=== PATIENT | male | born 1995 | race Caucasian/White ===

== ENCOUNTER 2017-05-15 15:39 | Emergency (ER) | payer BC ==
[2017-05-15 15:53] VITALS: BP 128/63
--- NOTE | 2017-05-15 15:54 | EDM.PDOC ---
ED HPI GENERAL MEDICAL PROBLEM - General Chief Complaint: General Stated Complaint: L knee pain Time Seen by Provider: 05/15/17 15:45 Source of Information: Reports: Patient. Denies: Old Records (No [facility] records available) History Limitations: Reports: No Limitations - History of Present Illness INITIAL COMMENTS - FREE TEXT/NARRATIVE: The patient was playing on the monkey bars at the park in [place] when he accidentally strained his left knee at about 18:30 hours with 6/10 left knee pain since that time. 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 He denies any history of significant fall, head injury, change in mental status, neck/back pain, paresthesias, neurological deficits, or other complaints or injuries. He has been ambulating on the leg to this point. The patient did take 650 mg of Tylenol about one hour prior to arrival. No recent history of abdominal pain, heartburn, nausea, diarrhea, melena, gross hematochezia, or any food intolerance, including fatty foods, etc.. The patient also denies any recent fever, cough, wheezing, dyspnea , etc.. He was brought to this facility via private automobile by his friend and has not missed any work to this point Onset: Today, Sudden Onset Date: 05/14/17 Onset Time: 18:30 Duration: Constant, Getting Worse Location: Reports: Lower Extremity, Left. Denies: Head, Face, Neck, Chest, Abdomen, Back, Pelvis, Upper Extremity, Left, Upper Extremity, Right, Lower Extremity, Right, Generalized, Radiates to Quality: Reports: Pressure, Same as Previous Episode, Sharp, Stabbing Severity: Moderate Improves with: Reports: Rest Worsens with: Reports: Movement Context: Reports: Trauma (As above) Associated Symptoms: Denies: Confusion, Chest Pain, Cough, Diaphoresis, Fever/ Chills, Headaches, Loss of Appetite, Malaise, Nausea/Vomiting, Shortness of Breath, Syncope, Weakness Treatments ASSEMBLER MOVEMENT: Reports: Acetaminophen, Cold Therapy Left Knee Pain Score (Numeric/FACES): 6 - Related Data Allergies Allergy/AdvReac Type Severity Reaction Status Date / Time No Known Allergies Allergy Verified 05/15/17 15:41 Past Medical History HEENT History: Reports: Impaired Vision, Other (See Below) Other HEENT History: Patient wears glasses Musculoskeletal History: Reports: Arthritis, Osteoarthritis, Other (See Below). Denies: Gout, RA, SLE Other Musculoskeletal History: History of recurrent right-sided patellar dislocations initially in 2010 with possibility of unknown type of meniscal injury by MRI at that time with no previous therapy - Past Surgical History GI Surgical History: Reports: Appendectomy, Other (See Below) (Appendectomy in June 2016) - Past Imaging History Past Imaging History: Reports: MRI (MRI of the right knee in 2010 and then again in 2012) Social & Family History - Tobacco Use Smoking Status *Q: Current Every Day Smoker Tobacco Use Within Last Twelve Months: Snuff/Dip Years of Tobacco use: 9 (started using chewing tobacco at age 9) Packs/Tins Daily: 0.5 (Can per day) Used Tobacco, but Quit: No Smoking Cessation Information Provided To Patient: Yes Smoking Cessation Information Given Comment: Roommate Second Hand Smoke Exposure: Yes Second Hand Smoke Education Provided: Yes - Living Situation & Occupation Occupation: Employed ([employer]) ED ROS GENERAL - Review of Systems Review Of Systems: ROS reveals no pertinent complaints other than HPI. ED EXAM, GENERAL - Physical Exam Exam: See Below Exam Limited By: No Limitations General Appearance: Alert, WD/WN, No Apparent Distress Head: Atraumatic, Normocephalic Neck: Normal Inspection, Supple, Non-Tender, Full Range of Motion. No: Lymphadenopathy (L), Lymphadenopathy (R), Thyromegaly Respiratory/Chest: No Respiratory Distress, Lungs Clear, Normal Breath Sounds, No Accessory Muscle Use, Chest Non-Tender. No: Pleural Rub, Retractions Cardiovascular: Normal Peripheral Pulses, Regular Rate, Rhythm, No Edema, No Gallop, No JVD, No Murmur, No Rub. No: Gallop/S3, Gallop/S4, Friction Rub Peripheral Pulses: 2+: Radial (L), Radial (R), Dorsalis Pedis (L), Dorsalis Pedis (R) GI/Abdominal: Normal Bowel Sounds, Soft, Non-Tender, No Organomegaly, No Distention, No Abnormal Bruit, No Mass, Pelvis Stable. No: Guarding (Male) Exam: Deferred Rectal (Males) Exam: Deferred Back Exam: Normal Inspection, Full Range of Motion. No: CVA Tenderness (L), CVA Tenderness (R), Muscle Spasm Extremities: Normal Range of Motion, No Pedal Edema, Normal Capillary Refill, Joint Swelling (Mild left knee effusion with no crepitation, deformity, or sign of fracture, negative anterior drawer, Duran's, pivot shift, and Flo's tests). No: Non-Tender (Mild left knee pain with range of motion and palpation with no evidence of patellar subluxation or instability), Mikala's Sign Neurological: Alert, Oriented, CN II-XII Intact, Normal Cognition, Normal Gait, Normal Reflexes (Negative Babinski's), No Motor/Sensory Deficits Psychiatric: Normal Affect, Normal Mood Skin Exam: Warm, Dry, Intact, Normal Color, No Rash. No: Diaphoretic, Wound/ Incision Lymphatic: No Adenopathy ED GENERAL MEDICAL PROCEDURES - Splinting Left Lower Extremity Pre-procedure NV status: Normal Post-procedure NV status: Normal Splint Material: Other (Knee immobilizer) Splint Design: Knee Immobilizer Applied & Form Fitted By: Nurse Provider Post-Splint Application NV Check: NV Status Normal, Good Position Complications: No Course - Vital Signs Last Recorded V/S: Last Vital Signs Temp 36.6 C 05/15/17 15:52 Pulse 79 05/15/17 15:52 Resp 16 05/15/17 15:52 BP 128/63 05/15/17 15:52 Pulse Ox 99 05/15/17 15:52 Vital Signs - 24 hr 05/15/17 15:52 Temperature [ 36.6 C Oral] Pulse, 79 Peripheral [ Pulse Oximetry] Respiratory 16 Rate Blood Pressure 128/63 [Right Upper Arm] O2 Sat by Pulse 99 Oximetry - Orders/Labs/Meds Orders: Active Orders 24 hr Category Date Time Status Knee 3V Lt [CR] Stat Exams 05/15/17 15:54 Taken Durable Medical Equipment for Discharge [DME for Oth 05/15/17 16:24 Ordered Discharge] [COMM] Routine Durable Medical Equipment for Discharge [DME for Oth 05/15/17 16:24 Ordered Discharge] [COMM] Routine Obtain Past Medical Record [OM.PC] Routine Oth 05/15/17 15:54 Active Labs: None Meds: None - Radiology Interpretation Free Text/Narrative:: X-rays of the left knee, 3 views, shows no evidence of fracture, dislocation, or significant arthritic changes. Mild joint effusion noted. Patella is in normal position Departure - Departure Time of Disposition: 16:50 Disposition: Home, Self-Care 01 Condition: Good Clinical Impression: Tobacco abuse counseling Left knee pain Qualifiers: Chronicity: acute Qualified Code(s): M25.562 - Pain in left knee Osteoarthritis Qualifiers: Osteoarthritis location: knee Osteoarthritis type: primary Laterality: bilateral Qualified Code(s): M17.0 - Bilateral primary osteoarthritis of knee - Discharge Information Instructions: Crutch Use, [id number], Knee Pain, [id number], Knee Immobilizer, [id number], Knee Sprain, [id number] Referrals: Lelo Odonnell PA [Primary Care Provider] - Forms: ED Department Discharge, ED Return to Work/School Form Additional Instructions: 1. Followup with your regular provider in 7-10 days as directed. Further workup at that time as needed, including possible MRI of the left knee depending on your symptoms, etc. 2. Work excuse- See Form 3. Wear knee immobilizer and use crutches at all times with exception of bathing with limited weightbearing of the left leg as tolerated/discussed until otherwise directed by your regular provider 4. BenGay or equivalent, heating pad, and/or ice packs as directed. 5. Stop all tobacco use YISEL as directed/per provided information and consider contacting Quit LIne, etc.. - Problem List & Annotations (1) Left knee pain SNOMED Code(s): 24348686 Code(s): M25.562 - PAIN IN LEFT KNEE Status: Acute Priority: High Current Visit: Yes Onset Date: 05/14/17 Annotation/Comment:: Probable mild left knee sprain with no evidence of significant meniscal or ligamental injury by physical exam as above. Symptomatic relief as per discharge instructions. Patient was provided a knee immobilizer and crutches. Work excuse provided. Close follow-up by his regular provider in 710 days with possible further PT/ OT referral, MRI, etc. depending on his clinical course Qualifiers: Chronicity: acute Qualified Code(s): M25.562 - Pain in left knee (2) Osteoarthritis SNOMED Code(s): 366735714 Code(s): M19.90 - UNSPECIFIED OSTEOARTHRITIS, UNSPECIFIED SITE Status: Chronic Priority: Medium Current Visit: Yes Annotation/Comment:: Otherwise stable by history Qualifiers: Osteoarthritis location: knee Osteoarthritis type: primary Laterality: bilateral Qualified Code(s): M17.0 - Bilateral primary osteoarthritis of knee (3) Tobacco abuse counseling SNOMED Code(s): 337590002, 449797596, 155219059 Code(s): Z71.6 - TOBACCO ABUSE COUNSELING Status: Chronic Priority: Medium Current Visit: Yes Annotation/Comment:: Tobacco cessation strongly encouraged with information provided at discharge. Patient was also counseled on the use of Nicorette gum. - Problem List Review Problem List Initiated/Reviewed/Updated: Yes - My Orders Last 24 Hours: My Active Orders 05/15/17 15:54 Knee 3V Lt [CR] Stat Obtain Past Medical Record [OM.PC] Routine 05/15/17 16:24 Durable Medical Equipment for Discharge [DME for Discharge] [COMM] Routine Durable Medical Equipment for Discharge [DME for Discharge] [COMM] Routine - Assessment/Plan Last 24 Hours: My Active Orders 05/15/17 15:54 Knee 3V Lt [CR] Stat Obtain Past Medical Record [OM.PC] Routine 05/15/17 16:24 Durable Medical Equipment for Discharge [DME for Discharge] [COMM] Routine Durable Medical Equipment for Discharge [DME for Discharge] [COMM] Routine Assessment:: As above Plan: As above. Extensive precautions were given to the patient, who is in agreement with the treatment plan. See Patient Instructions for further treatment and plan.
== END 2017-05-15 16:45 | disposition home or self-care (01) ==
LOC: LL.ED 15:39
DX: M17.0 Bilateral primary osteoarthritis of knee (principal); F17.210 Nicotine dependence, cigarettes, uncomplicated; Z90.49 Acquired absence of other specified parts of digestive tract; Z71.6 Tobacco abuse counseling
CPT/HCPCS: 73562-LT; 99284

== ENCOUNTER 2025-05-17 01:57 | Emergency (ER) | payer BC, OTHER ==
[2025-05-17 02:00] VITALS: BP 133/87; PULSE 104
[2025-05-17 03:16] LABS: AMPHETAMINES SCREEN, URINE NEGATIVE (NEGATIVE); COCAINE METABOLITES,URINE NEGATIVE (NEGATIVE); EDDP,URINE SCREEN NEGATIVE (NEGATIVE); METHAMPHETAMINES SCREEN, URINE NEGATIVE (NEGATIVE); TCA SCREEN,URINE NEGATIVE (NEGATIVE); THC SCREEN,URINE 50 NG/ML POSITIVE (NEGATIVE)
[2025-05-17 03:18] LABS: BUPRENORPHINE SCREEN,URINE NEGATIVE (NEGATIVE); OXYCODONE SCREEN,URINE NEGATIVE (NEGATIVE)
== END 2025-05-17 03:30 | disposition home or self-care (01) ==
LOC: LL.ED 01:57
DX: F10.129 Alcohol abuse with intoxication, unspecified (principal); F17.200 Nicotine dependence, unspecified, uncomplicated; Z90.49 Acquired absence of other specified parts of digestive tract; Y90.0 Blood alcohol level of less than 20 mg/100 ml
CPT/HCPCS: 36415; 80305-QW; 80307; 99284